=== PATIENT | female | born 1960 | race Caucasian/White ===

== ENCOUNTER 2017-05-05 15:10 | Emergency (ER) | payer OTHER ==
[~2017-05-05] VITALS: Ht 160 cm; Wt 67.9 kg
[~2017-05-05 15:10] MED LIST: AMLODIPINE BESYL5 MG PO; Advil Migraine PO; BACLOFEN10 MG PO; BENTYL20 MG PO; CELEBREX50 MG PO; CELEXA20 MG PO; CLONAZEPAM 0.5 MG; CLONAZEPAM0.5 MG PO; CYCLOBENZAPRINE10 MG PO; CYMBALTA30 MG PO; DESYREL100 MG PO; Ecotrin PO; GABAPENTIN300 MG PO; IMITREX100 MG PO; INDOCIN50 MG PO; KLONOPIN0.5 M1 PO; LISINOPRIL40 MG PO; METOPROLOL SUCC50 MG PO; MOBIC15 MG PO; Metoprolol Succinate; NAPROSYN500 MG PO; NEXIUM40 MG PO; NORCO 7.5/321 TABLET PO; OMEPRAZOLE40 M1 PO; PERCOCET 5/31 TABLET PO; PREDNISONE10 MG PO; PREDNISONE20 MG PO; PRILOSEC40 MG PO; PRINIVIL10 MG PO; SERTRALINE HCL50 MG PO; SIMVASTATIN40 M1 G-TUBE; TOPROL XL50 MG PO; TRAZODONE HCL100 MG PO; ULTRAM50 MG PO; VALIUM5 MG PO; ZANTAC300 MG PO; ZOFRAN4 MG PO
[2017-05-05 15:39] LABS: HEMATOCRIT 46.2 % (36.0-46.0); HEMOGLOBIN 15.4 G/DL (11.9-15.5); MCH 31.2 PG (29.0-34.0); MCHC 33.3 G/DL (30.0-36.0); MCV 93.5 FL (83-99); PLATELET COUNT 210 K/uL (156-360); RBC DIS.WIDTH-CV 13.2 % (11.8-14.6); RBC DIS.WIDTH-SD 45.1 % (39-53); RED BLOOD COUNT 4.94 M/uL (3.80-5.20); WHITE BLOOD COUNT 13.5 K/uL (4.1-10.2)
[2017-05-05 15:50] LABS: CHLORIDE 108 mEq/L (99-109); POTASSIUM 3.6 mEq/L (3.7-5.4); SODIUM 139 mEq/L (136-147)
[2017-05-05 15:51] LABS: GLUCOSE 102 mg/dL (70-99)
[2017-05-05 15:55] LABS: CREATININE 0.9 mg/dL (0.6-1.3); GFR ESTIMATE (CALCULATED) > 59 mL/min/
[2017-05-05 15:56] LABS: UREA NITROGEN (BUN) 14 mg/dL (9-23)
[2017-05-05 17:45] LABS: APPEARANCE CLEAR ((CLEAR)); BILIRUBIN NEGATIVE; BLOOD NEGATIVE; COLOR YELLOW ((YELLOW)); GLUCOSE (STRIP) NEGATIVE; KETONES NEGATIVE; LEUKOCYTES NEGATIVE; NITRITE NEGATIVE; PROTEIN (STRIP) NEGATIVE; SPECIFIC GRAVITY 1.017 (1.000-1.030); UCUL ADDED? NO; UROBILINOGEN 0.2 MG/DL (0.2-1.0)
[2017-05-05 18:43] VITALS: BP 170/74
== END 2017-05-05 18:44 | disposition home or self-care (01) ==
LOC: EME 15:10
PROVIDERS: Physician Assistant
DX: R55 Syncope and collapse (principal); B34.9 Viral infection, unspecified; R11.0 Nausea; M79.1 Myalgia; I10 Essential (primary) hypertension; F17.200 Nicotine dependence, unspecified, uncomplicated
CPT/HCPCS: 70450; 71046; 80048; 81003; 85027; 93005; 99281; 99285

== ENCOUNTER 2017-09-13 22:49 | Emergency (ER) | payer OTHER ==
[~2017-09-13] VITALS: Ht 160 cm; Wt 70.8 kg
[2017-09-14] MEDS ORDERED: VALIUM5 MG PO (01:03)
[2017-09-14] MEDS ORDERED: MOTRIN600 MG PO (01:03)
[2017-09-14] MEDS ORDERED: PERCOCET 5/31 TABLET PO (01:03)
[2017-09-14 01:19] VITALS: BP 178/99
== END 2017-09-14 01:25 | disposition home or self-care (01) ==
LOC: EME 22:49
DX: S39.012A Strain of muscle, fascia and tendon of lower back, initial encounter (principal); X50.0XXA Overexertion from strenuous movement or load, initial encounter; Y93.89 Activity, other specified; Z91.040 Latex allergy status
CPT/HCPCS: 99281; 99284